=== PATIENT | female | born 1990 ===

== ENCOUNTER 2024-03-27 17:35 | Inpatient (IN) | payer SELFPAY ==
[~2024-03-27] VITALS: Ht 152.4 cm; Wt 75.9 kg
[2024-03-27] MEDS ORDERED: Ondansetron HCl 2 MG / ML 2ML Vial IV ONE ×2 (17:45→21:50)
[2024-03-27 18:08] LABS: BASOPHILS ABSOLUTE AUTO 0.04 K/mm3 (0.00-0.23); BASOPHILS PERCENT AUTO 1 % (0-2); EOSINOPHILS ABSOLUTE AUTO 0.18 K/mm3 (0.00-0.68); EOSINOPHILS PERCENT AUTO 3 % (0-6); Hemoglobin 14.8 g/dL (11.5-16.0); IMMATURE GRAN ABSOLUTE AUTO 0.02 K/mm3 (0.00-0.10); IMMATURE GRAN PERCENT AUTO 0 % (0-1); LYMPHOCYTES ABSOLUTE AUTO 2.44 K/mm3 (0.84-5.20); LYMPHOCYTES PERCENT AUTO 34 % (21-46); MONOCYTES ABSOLUTE AUTO 0.59 K/mm3 (0.16-1.47); MONOCYTES PERCENT AUTO 8 % (4-13); Mean Corpuscular HGB 30.5 pg (26.0-34.0); Mean Corpuscular HGB Conc 35.2 g/dL (31.5-36.5); Mean Corpuscular Volume 86 fL (80-100); Mean Platelet Volume 10.8 fL (9.1-12.4); NEUTROPHILS ABSOLUTE AUTO 3.96 K/mm3 (1.96-9.15); NEUTROPHILS PERCENT AUTO 55 % (41-73); Platelet Count 193 K/mm3 (150-400); RDW Coefficient Variation 12.5 % (11.7-14.2); RDW Standard Deviation 39.5 fL (35.1-46.3); Red Blood Cell Count 4.86 M/mm3 (3.80-5.20); White Blood Cell Count 7.23 K/mm3 (4.00-11.30)
[2024-03-27 18:27] LABS: Albumin, Blood 3.9 g/dL (3.4-5.0); Albumin/Globulin Ratio 1.1 (0.8-1.8); Bilirubin, Total 0.3 mg/dL (0.1-1.0); Bun/Creatinine Ratio 18.2 (12.0-20.0); Calcium, Blood 9.1 mg/dL (8.5-10.1); Creatinine, Blood 0.72 mg/dL (0.40-1.00); Globulin, Blood 3.7 g/dL (2.2-4.0); Potassium, Blood 3.2 mmol/L (3.5-5.5); Total Protein, Blood 7.6 g/dL (6.4-8.2)
[2024-03-27] MEDS ORDERED: FentaNYL Citrate 50 MCG/ML 2 ML Injection IV ONE (21:50)
[2024-03-27] MEDS ORDERED: NS 1,000 ML IV SCH ×2 (21:50→22:40)
[2024-03-27] MEDS ORDERED: CefOXitin Sodium 1,000 MG in NS 50 ML IV ONE (21:50)
[2024-03-27] MEDS ORDERED: Ondansetron HCl 2 MG / ML 2ML Vial IV PRN (22:40)
[2024-03-27] MEDS ORDERED: HYDROmorphone HCl/Pf 1MG SYR IV PRN (22:40)
[2024-03-28] VITALS (17 sets, daily range): BP systolic 89–134; BP diastolic 65–99
--- NOTE | 2024-03-28 06:10 | NUR ---
SHIFT SUMMARY PT ER ADMIT THIS SHIFT FOR ACUTE LYNDSEY. PT HAS RESTED SINCE ADMISSION, PT DENIES PAIN. NO N/V. PT HAS BEEN NPO SINCE ARRIVAL TO UNIT. PT REQUESTED TO TAKE A SHOWER SHORTTLY AFTER ADMISSION AND PERFORMED PRE OP WASH. BLOOD PRESSURES ARE SOFT BUT MAP STABLE. PT ASYMPTOMATIC. PT INDEPENDENT IN THE ROOM. IVF INFUSING. BED IN LOWEST POSITION, CALL LIGHT WITHIN REACH.
[2024-03-28] MEDS ORDERED: Indocyanine Green 25 MG Vial IV STA (07:43)
[2024-03-28] MEDS ORDERED: CefOXitin Sodium 2,000 MG in NS 50 ML IV SCH (08:00)
[2024-03-28] MEDS ORDERED: Lactated Ringer's 1,000 ML IV SCH ×2 (08:15→13:00)
--- NOTE | 2024-03-28 08:45 | NUR ---
INTO [facility]IA [email or web address]. 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 VS WDL. LUNGS CLEAR-SATS>90% ON RA. NPO STATUS CONFIRMED. PT SPOUSE LUIS AT BEDSIDE. URINE SENT FOR HCG BY SAM WALKER.
[2024-03-28] MEDS ORDERED: Bupivacaine 0.5% HCl 5 MG/ML 30MLVIAL ONE (09:06)
--- NOTE | 2024-03-28 09:10 | NUR ---
JACINTO-STEWARDESSES TEACHER AT BEDSIDE-LEGAL OFFICER #[id number] ASSISTING.
--- NOTE | 2024-03-28 09:12 | NUR ---
PIV #20 TO LEFT AC C/D/I-FLUSHES WELL.
[2024-03-28] MEDS ORDERED: propofoL 40 ML IV ONE (09:25)
[2024-03-28] MEDS ORDERED: HYDROmorphone HCl/Pf 1MG SYR ONE (09:25)
[2024-03-28] MEDS ORDERED: Midazolam HCl 1MG / ML 2ML Vial ONE (09:25)
[2024-03-28] MEDS ORDERED: Rocuronium Bromide 10 MG/ML 5ML Injection IV ONE ×3 (09:28→11:43)
--- NOTE | 2024-03-28 09:36 | NUR ---
PT TO OR AT ABOUT 0840
--- NOTE | 2024-03-28 09:44 | NUR ---
HEAD TO TOE ASSESSMENT COMPLETED USING THERMAL SPRAY OPERATOR PHONE AT ABOUT 0815
[2024-03-28] MEDS ORDERED: Ondansetron HCl 2 MG / ML 2ML Vial ONE (10:03)
[2024-03-28] MEDS ORDERED: Dexamethasone Sod Phos 10 MG/ML 1ML VIAL ONE (10:03)
--- NOTE | 2024-03-28 10:19 | NUR ---
03/28/24 1019 Russel Patel PT ON SCHEDULED ANTIBIOTICS. SALT CUTTER USED IN [facility] TO REALLY ALL NEEDED INFORMATION PRIOR TO ARRIVING IN OPERATING ROOM.
--- NOTE | 2024-03-28 12:03 | NUR ---
While Pt. is surgery, I speak (as best I could) with her spouse who was in the waiting area. The family are primarily gabonese speakers, but the spouse acknowledged gratitude that I would be praying for the Pt. Will remain available to the family.
[2024-03-28] MEDS ORDERED: Sugammadex Sodium 200 MG/2ML SDV (100 MG/ML) ONE (12:05)
[2024-03-28] MEDS ORDERED: Ondansetron HCl 2 MG / ML 2ML Vial IV PRN (13:00)
[2024-03-28] MEDS ORDERED: OxyCODONE HCL 5 MG TAB PO PRN (13:00)
[2024-03-28] MEDS ORDERED: Acetaminophen 325 MG TABLET PO PRN (13:00)
[2024-03-28] MEDS ORDERED: HYDROmorphone HCl/Pf 1MG SYR IV PRN (13:00)
[2024-03-28] MEDS ORDERED: Metoclopramide HCl 5MG / ML 2ML Vial IV PRN (13:00)
--- NOTE | 2024-03-28 15:21 | NUR ---
POST OP: REPORT RECEIVED FROM CORNER CUTTER. PT TO UNIT AT ABOUT 1250. UPON ASSESSMENT, PT IS DROWSY AND AWAKENS TO VOICE. FOLLOWS COMMANDS. AREA INTELLIGENCE TECHNICIAN PHONE USED TO DO ASSESSMENT. INCISIONS ARE CDI, LUNGS CLEAR, SP02 STABLE ON RA. PT REPORTED ABD PAIN 8/10, MEDICATED PER EMAR. PT ABLE TO TAKE SIPS OF WATER. DENIED NAUSEA. PT INSTRUCTED TO CALL FOR HELP THE FIRST TIME GETTING OOB, PT AT BEDSIDE. CALL LIGHT IN REACH
--- NOTE | 2024-03-28 17:49 | NUR ---
SUMMARY: PT HAS DONE WELL POST OP LYNDSEY. VSS, A/O. INCISIONS WNL. PT ABLE TO AMBULATE IN ROOM AND VOID. NOW SALINE LOCKED EXCEPT FOR ANTIBIOTICS. PT DRINKING AND EATING A LITTLE, DID HAVE A SMALL EPISODE OF NAUSEA AFTER GIVING DILAUDID. PT REFUSED NAUSEA MEDICATION STATING IT MAKES HER DIZZY. PAIN APPEARS TO BE MANAGED WELL WITH 1 OXY AND 0.5 MG DILAUDID FOR BREAK THROUGH PAIN. NO ACUTE SAFETY CONCERNS.
[2024-03-29 04:12] VITALS: BP 107/78
--- NOTE | 2024-03-29 04:24 | NUR ---
SHIFT SUMMARY POD 1 LAP LYNDSEY PT ABLE TO SLEEP T/O NIGHT. PAIN MANAGED PER EMAR. PT AMB TO THE BATHROOM WITH SBA ASST. PT TOLERTAING PO INTAKE, VOIDING. NOT PASSING GAS AT THIS TIME. PT HAS X6 LAP SITES CLOSED WITH WOUND GLUE, ALL C/D/I. PT LATVIAN SPEAKING, USING TRANSLATER PHONE. VSS. NO OTHER CONCERNS AT THIS TIME, CALL LIGHT WITHIN REACH
[2024-03-29 05:02] LABS: BASOPHILS ABSOLUTE AUTO 0.02 K/mm3 (0.00-0.23); BASOPHILS PERCENT AUTO 0 % (0-2); EOSINOPHILS ABSOLUTE AUTO 0.02 K/mm3 (0.00-0.68); EOSINOPHILS PERCENT AUTO 0 % (0-6); Hematocrit 42.2 % (33.0-51.0); Hemoglobin 14.6 g/dL (11.5-16.0); IMMATURE GRAN ABSOLUTE AUTO 0.05 K/mm3 (0.00-0.10); IMMATURE GRAN PERCENT AUTO 0 % (0-1); LYMPHOCYTES ABSOLUTE AUTO 1.36 K/mm3 (0.84-5.20); LYMPHOCYTES PERCENT AUTO 11 % (21-46); MONOCYTES ABSOLUTE AUTO 0.81 K/mm3 (0.16-1.47); MONOCYTES PERCENT AUTO 7 % (4-13); Mean Corpuscular HGB 30.8 pg (26.0-34.0); Mean Corpuscular HGB Conc 34.6 g/dL (31.5-36.5); Mean Corpuscular Volume 89 fL (80-100); Mean Platelet Volume 11.6 fL (9.1-12.4); NEUTROPHILS ABSOLUTE AUTO 10.09 K/mm3 (1.96-9.15); NEUTROPHILS PERCENT AUTO 82 % (41-73); Platelet Count 200 K/mm3 (150-400); RDW Coefficient Variation 12.6 % (11.7-14.2); RDW Standard Deviation 41.1 fL (35.1-46.3); Red Blood Cell Count 4.74 M/mm3 (3.80-5.20); White Blood Cell Count 12.35 K/mm3 (4.00-11.30)
[2024-03-29 05:42] LABS: Calcium, Blood 8.5 mg/dL (8.5-10.1); Creatinine, Blood 0.65 mg/dL (0.40-1.00)
[2024-03-29 07:32] VITALS: BP 116/77
--- NOTE | 2024-03-29 07:39 | NUR ---
LINKING MACHINE OPERATOR PHONE USED DURING AM ASSESSMENT. JOY WAS PT'S LINKING MACHINE OPERATOR.
--- NOTE | 2024-03-29 12:50 | NUR ---
CHICK GRADER PHONE CHICK GRADER PHONE USED TO EXPLAIN MEDICATION ADMINISTRATION. CHICK GRADER DAVID.
--- NOTE | 2024-03-29 13:10 | NUR ---
DIRECTOR CRITICAL CARE PHONE USED FOR MEDICATION ADMINISTRATION, EDUCATION AND TO ANSWER PT'S QUESTIONS. DIRECTOR CRITICAL CARE JOSEP.
[2024-03-29] MEDS ORDERED: OXYC5 PO (13:43)
[2024-03-29 14:36] VITALS: BP 106/77
--- NOTE | 2024-03-29 15:25 | NUR ---
SHIFT SUMMARY SAP BW BI DEVELOPER PHONE USED TO PROVIDE DISCHARGE INSTRUCTIONS, SAP BW BI DEVELOPER [place]. PT VERBALIZED UNDERSTANDING INSTRUCTIONS. WRITTEN INSTRUCTIONS PROVIDED IN TURKISH AND [place]. VSS PRIOR TO DISCHARGE. PT ASSISTED OUT IN W/C AT APPROXIMATELY 1525.
--- NOTE | 2024-03-29 15:46 | NUR ---
Met Pt. is the hallway as she was preparing to discharge. Facilitated an introduction and a limited life review as the Pt. is a [place] uz[place] speaker. Provided Pt. with encouragment and gave a blessing in her [place] language. Pt. verbalized gratitude (in uzbek) for the spiritual care visit.
== END 2024-03-29 15:25 | disposition home or self-care (01) | DRG 419 ==
LOC: ER 17:35 → SURS 17:36
PROVIDERS: Physician Assistant; ADMIT Surgery
PROC: 0FT44ZZ Resection of Gallbladder, Percutaneous Endoscopic Approach (ICD-10-PCS; principal; 2024-03-28 08:30)
DX: K80.00 Calculus of gallbladder with acute cholecystitis without obstruction (principal)
CPT/HCPCS: 36415; 76705; 80048; 80053; 83690; 85025; 88304; 94762; 96365; 96375; 96376; 99285-25; A9270; G0378; J0694; J1100; J1170; J2250; J2405; J2704; J3010; J7030; J7120